=== PATIENT | male | born 1940 | race Caucasian/White ===

== ENCOUNTER → 2017-12-26 | Day surgery (SDC) | payer MEDICARE ==
[~2017-12-26] MED LIST: ALEV220T14 PO; ASPI81TA23 PO; COQ150CA PO; DORZ2SOL7 EACH EYE; IOHEXOL 180 MG/ML 20 ML VIAL (for RAD DIAG) EPIDURAL ONE; LATA.005%O EACH EYE; LIDOCAINE HCL 1% 30 ML VIAL NERV BLOCK ONE; LOSA50TA6 PO; MAGN500T2 PO; NIAC1TAB5 PO; POTA8TAB PO; PROPOFOL 200 MG/20 ML AMP IV ONE; TRIAMCINOLONE ACETONIDE 40 MG/ML VIAL NERV BLOCK ONE; VITACAP7 PO; ZOCO40TA PO
--- NOTE | 2017-12-26 08:47 | M6 ---
cc: Rodrigo Downey MD DATE: 12/26/2017 PROCEDURE: Fluoroscopically guided right L5-S1 and right S1 transforaminal epidural steroid injection. History and physical was completed and signed. Consent was signed. Procedure site was marked. Medications were listed and reconciled. Pain score was recorded. Allergies were noted. Time out was taken. Fluoroscopy time was recorded where applicable. Sedation was administered or directed by Dr. Downey. The patient was given oxygen. The patient was monitored by a registered nurse. Total procedure time was greater than 15 minutes. PROCEDURE NOTE: An IV was started, blood pressure cuff, pulse oximeter and EKG were applied. The patient was placed in the prone position on a Herber table, sedated with small amounts of Versed and propofol titrated to effect. Vital signs were monitored and remained stable throughout the procedure. The patient remained responsive throughout the procedure. The lumbar area was scrubbed with antimicrobial solution, prepped with 10% Betadine solution, and draped with sterile drapes. Fluoroscopy was used in both the AP and lateral projections to clearly visualize the right L5-S1 and right S1 neural foramen. Then separate sterile 22 gauge, 3 1/2-inch Chiba needles were advanced under fluoroscopic guidance into the dorsal-most aspect of each foramen. There was negative aspiration for blood or CSF. There were no reported paresthesias by the patient. There was no washout of 2 mL of Omnipaque. Then after waiting approximately 60 seconds, the patient was slowly given 3 mL of 1% Xylocaine, 40 mg of Kenalog and 3 mL of Omnipaque. Following this, the patient was taken to the recovery room with stable vital signs, neurologically intact. Rodrigo Downey MD [facility] , 08:34 AM , 08:45 AM
--- NOTE | 2017-12-26 08:55 | M6 ---
cc: Rodrigo Downey MD DATE: 12/26/2017 PROCEDURE: Fluoroscopically guided epidurogram. 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 INDICATIONS: An epidurogram was done on Mr. Wright today. X-ray images were saved for the patient's chart. The patient is status post lumbar surgery back in 2015. He has had recurring right lower extremity pain. He had some right epidural steroid injections done up in [place], which were not very helpful. In September, I performed a fluoroscopically guided right L5-S1 and right S1 transforaminal nerve root injection which was helpful. The purpose for doing the epidurogram is to see if the injected medication flows not only distally along the S1 and L5 nerve root, but through the neural foramen into the central epidural space. Imaging studies do show that he has some scar tissue there that might obstructive flow of medication and if that is the case, we might need to adjust or alter our technique for injection. PROCEDURE NOTE: An IV was started. Blood pressure cuff pulse oximeter and EKG were applied. The patient was placed in the prone position on the Herber table, sedated with small amounts of propofol titrated to effect. Vital signs are monitored and remained stable throughout the procedure. The lumbar area was prepped with alcohol and 10% Betadine solution and draped with sterile drapes. Fluoroscopy was used to see the L5-S1 sacral ala and the S1 neural foramen on the right side. Separate sterile 3.5 inch Chiba needles were placed in these locations using fluoroscopic guidance in both AP and lateral projection. Omnipaque dye was injected and seen to spread distally along the S1 and L5 nerve root. At the S1 nerve, the dye did spread centrally to the epidural space; however, at the L5 level, there was very little, if any dye spreading into the neural foramen. IMPRESSION: Probable obstruction of injected medication at the right L5 level. Rodrigo Downey MD [facility] , 08:38 AM , 08:54 AM
== END | disposition home or self-care (01) ==
LOC: PHSDC 06:42
PROVIDERS: ATTEND Pain Medicine Interventional Pain Medicine
DX: M96.1 Postlaminectomy syndrome, not elsewhere classified (principal); M54.16 Radiculopathy, lumbar region; M79.604 Pain in right leg
CPT/HCPCS: 64483; 64484; 99152; J3301; Q9965